=== PATIENT | female | born 1960 | race Caucasian/White ===

== ENCOUNTER → 2016-07-03 | Outpatient (CLI) | payer BC ==
[~2016-07-03] MED LIST: 00186-0370-20 IH; ATIVAN 0.50.5 MG/TAB PO; MICRO-K 1010 MEQ PO; MULTIPLE VITAMI1 CAP PO; NORCO 325 MG-7.1 TAB PO; PHENERGAN 25 TA25 MG PO; PULMICORT0.5 MG/2 M IH; RT SPIRIVA18 MCG IH; THEO-24 30300 MG/CAP PO; TRIAMCINOLONE0.11 TP; ULTRAM 50MG TAB50 MG PO; VENTOLIN0.09 MG IH
== END ==
LOC: COL.RAD 07-02 11:30
DX: M25.512 Pain in left shoulder (principal)
CPT/HCPCS: J3301; Q9967

== ENCOUNTER 2018-04-12 05:19 | Day surgery (SDC) | payer BC ==
[2018-04-12] VITALS (9 sets, daily range): BP systolic 106–137; BP diastolic 54–71; PULSE 63–81; TEMP 97–97.5
[~2018-04-12] VITALS: Ht 167.6 cm; Wt 65.2 kg
[2018-04-12] MEDS ORDERED: PROAIR HFA0.09 MG/AC IH (05:43)
[2018-04-12] MEDS ORDERED: DULERA1 AR1 IH (05:44)
[2018-04-12] MEDS ORDERED: SPIRIVA RE2.5 MCG/Ac IH (05:45)
[2018-04-12] MEDS ORDERED: MOBIC15 MG PO (05:47)
[2018-04-12] MEDS ORDERED: PHENERGAN 25 TA25 MG PO (05:47)
[2018-04-12] MEDS ORDERED: GLUCOPHAGE500 MG/TAB PO (05:48)
[2018-04-12] MEDS ORDERED: CALCIUM 600MG+D1 TAB PO (05:49)
[2018-04-12] MEDS ORDERED: NORCO 325 MG-51 TAB PO ×2 (05:49→09:09)
[2018-04-12] MEDS ORDERED: NATURAL POTASS595 MG PO (05:49)
[2018-04-12] MEDS ORDERED: PHARMASSURE ZIN50 MG PO (05:50)
[2018-04-12] MEDS ORDERED: B COMPLEX & B121 TAB PO (05:50)
[2018-04-12] MEDS ORDERED: HAIRSKINNAILS PO (05:50)
--- NOTE | 2018-04-12 06:21 | NUR ---
Patient resting comfortably in room, watching TV, spouse at the bedside. Her call light is in reach. She is offered comfort measure of an additional warm blanket, declines. Denies any needs at this time.
--- NOTE | 2018-04-12 06:55 | NUR ---
Patient rounding completed. Patient resting comfortably in room. HOB adjusted per patient's request. Denies any other needs at this time.
--- NOTE | 2018-04-12 07:38 | NUR ---
Patient rounding completed. Patient notified that Dr. Garcia will be delayed. Patient is pleasant and denies any needs at this time.
--- NOTE | 2018-04-12 07:48 | NUR ---
Patient requests and receives an additional warm blanket.
[2018-04-12] MEDS ORDERED: MOTRIN 600600 MG/TAB PO (09:09)
--- NOTE | 2018-04-12 09:40 | NUR ---
Patient arrives to [facility] at this time. She is drowsy, but easily awakens to voice. Her dressing in clean, dry, and intact. She denies any pain or nausea. Monitoring applied - VSS and WNL on 2L nasal cannula. Per patient, she wears 2L oxygen nasal cannula at home when she is sleeping. Patient's family is brought to the bedside. Offered and receives juice and applesauce to eat - tolerates well. Will continue to monitor.
--- NOTE | 2018-04-12 09:45 | NUR ---
VSS and WNL on 2L nasal cannula. Patient denies any pain, nausea, or need. She states "I'm ready to go home and sleep in my bed".
--- NOTE | 2018-04-12 10:00 | NUR ---
VSS and WNL on 2L nasal cannula. Oxygen titrated down to room air at this time to see if patient's SpO2 maintains for discharge.
--- NOTE | 2018-04-12 10:13 | NUR ---
Patient's SpO2 dipping down to 88%-90% on room air. Oxygen titrated back up to 2L nasal cannula at this time.
--- NOTE | 2018-04-12 10:15 | NUR ---
VSS and WNL on 2L nasal cannula. Patient is becoming more alert. She denies any pain, nausea, or need at this time.
--- NOTE | 2018-04-12 10:30 | NUR ---
VSS and WNL on 2 L nasal cannula.
--- NOTE | 2018-04-12 11:00 | NUR ---
Patient resting comfortably in room. Denies any pain, nausea, or need. Remains on 2L nasal cannula.
--- NOTE | 2018-04-12 11:07 | NUR ---
Patient requests to use restroom. Escorted to restroom with standby assist and steady gait noted. Patient voids and returns to room. Monitoring reapplied. SpO2 88-89% on room air. Patient placed back on 2 L nasal cannula and SpO2 rises to 92%.
--- NOTE | 2018-04-12 11:30 | NUR ---
Patient sitting up on side of bed. Coughing and deep breathing encouraged. Oxygen titrated down to room air. Will continue to monitor.
--- NOTE | 2018-04-12 12:04 | NUR ---
Patient maintaining SpO2 of 93% on room air. Discharge criteria has been met. PIV removed with catheter intact and hemostasis achieved. Discharge instructions discussed, denies any questions, and verbalizes understanding. Changing to clothing independently.
--- NOTE | 2018-04-12 12:12 | NUR ---
Discharge criteria has been met. Escorted to exit via wheelchair. Discharged to home with ride in private vehicle at 1212.
== END 2018-04-12 12:12 | disposition home or self-care (01) ==
LOC: SDCO 05:19
DX: N83.201 Unspecified ovarian cyst, right side (principal); J44.9 Chronic obstructive pulmonary disease, unspecified; E11.9 Type 2 diabetes mellitus without complications; J30.81 Allergic rhinitis due to animal (cat) (dog) hair and dander; M19.90 Unspecified osteoarthritis, unspecified site; M81.0 Age-related osteoporosis without current pathological fracture; F41.9 Anxiety disorder, unspecified; N95.1 Menopausal and female climacteric states; Z79.84 Long term (current) use of oral hypoglycemic drugs; Z88.1 Allergy status to other antibiotic agents; Z88.8 Allergy status to other drugs, medicaments and biological substances; Z90.710 Acquired absence of both cervix and uterus; Z87.891 Personal history of nicotine dependence; Z82.5 Family history of asthma and other chronic lower respiratory diseases; Z80.0 Family history of malignant neoplasm of digestive organs; Z83.3 Family history of diabetes mellitus; Z90.49 Acquired absence of other specified parts of digestive tract
CPT/HCPCS: J1100; J1885; J2405; J2704; J3010; J7120

== ENCOUNTER → 2020-06-04 | Outpatient (CLI) | payer OTHER ==
[~2020-06-04] MED LIST changes: +ACTOS 15MG TAB15 MG PO; +ASPIRIN 81M81 MG/TA2 PO; +B COMPLEX & B121 TAB PO; +BASAGLAR K100 UNIT/1 SQ; +BENTYL 10MG10 MG/CAP PO; +CALCIUM 600MG+D1 TAB PO; +CRANBERRY500 M3 PO; +DULERA1 AR1 IH; +GLUCOPHAGE500 MG/TAB PO; +HAIRSKINNAILS PO; +IPRATROPIUM BROM3 M1 IH; +MOBIC15 MG PO; +MOTRIN 600600 MG/TAB PO; +NATURAL POTASS595 MG PO; +NORCO 325 MG-51 TAB PO; +PHARMASSURE ZIN50 MG PO; +PRILOSEC 20MG20 MG PO; +PROAIR HFA0.09 MG/AC IH; +SPIRIVA RE2.5 MCG/Ac IH; +VITAMIN C500 MG PO
== END ==
LOC: MC.RAD 14:00
DX: C50.012 Malignant neoplasm of nipple and areola, left female breast (principal); Z96.89 Presence of other specified functional implants

== ENCOUNTER 2020-07-31 07:21 | Inpatient (IN) | payer OTHER ==
[~2020-07-31] VITALS: Ht 162.6 cm; Wt 69.1 kg
[2020-07-31] VITALS (9 sets, daily range): BP systolic 111–142; BP diastolic 61–86; PULSE 70–101; TEMP 97.6–98.1
[~2020-07-31 07:21] MED LIST changes: -ACTOS 15MG TAB15 MG PO; -ASPIRIN 81M81 MG/TA2 PO; -BASAGLAR K100 UNIT/1 SQ; -BENTYL 10MG10 MG/CAP PO; -CRANBERRY500 M3 PO; -IPRATROPIUM BROM3 M1 IH; -PRILOSEC 20MG20 MG PO; -VITAMIN C500 MG PO
[2020-07-31] MEDS ORDERED: ACTOS 15MG TAB15 MG PO (09:43)
[2020-07-31] MEDS ORDERED: BENTYL 10MG10 MG/CAP PO (09:45)
[2020-07-31] MEDS ORDERED: PRILOSEC 20MG20 MG PO (09:46)
[2020-07-31] MEDS ORDERED: ASPIRIN 81M81 MG/TA2 PO (09:47)
[2020-07-31] MEDS ORDERED: CRANBERRY500 M3 PO (09:48)
[2020-07-31] MEDS ORDERED: BASAGLAR K100 UNIT/1 SQ (09:49)
[2020-07-31] MEDS ORDERED: VENTOLIN0.09 MG IH (09:51)
[2020-07-31] MEDS ORDERED: IPRATROPIUM BROM3 M1 IH (09:56)
[2020-07-31] MEDS ORDERED: VITAMIN C500 MG PO (10:06)
--- NOTE | 2020-07-31 15:46 | NUR ---
Hospitalist notified of consult.
--- NOTE | 2020-07-31 17:18 | NUR ---
Patient alert and oriented, drowsy but awakens to verbal stimuli. See assessment. Left breast dressing CDI, CARMEN compressed, no drainage noted in bulb. Post op exercises education deferred until patient more coherent. No s/s pain or discomfort.
--- NOTE | 2020-07-31 20:00 | NUR ---
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 Assessment complete. A&Ox3-very drowsy. Denies pain/nausea/shortness of breath. VS remain stable. Dressing to left breast CDI. Scant amount of drainage in CARMEN drain. Refused HS meds. at bedside. Denies current needs. Call light in reach. Will monitor.
[2020-08-01] VITALS (7 sets, daily range): BP systolic 116–160; BP diastolic 54–75; PULSE 72–94; TEMP 97.7–98.4
[2020-08-01 03:48] LABS: COLLECTION METHOD CLEAN CATCH
[2020-08-01 03:57] LABS: MUCOUS Present /lpf; PH 6 (5-8); SQUAMOUS EPITHELIAL None Seen /hpf; URINE APPEARANCE Clear; URINE BACTERIA None Seen /hpf; URINE BILIRUBIN Negative (NEGATIVE); URINE BLOOD Negative (NEGATIVE); URINE COLOR Yellow; URINE GLUCOSE 3+ (NEGATIVE); URINE KETONE Trace (NEGATIVE); URINE LEUKOCYTE ESTERASE Negative (NEGATIVE); URINE NITRATE Positive (NEGATIVE); URINE PROTEIN(semi-quant) Negative (NEGATIVE); URINE RBC 0-2 /hpf; URINE UROBILINOGEN Negative (NEGATIVE)
--- NOTE | 2020-08-01 06:31 | NUR ---
Slept entire shift. Denies pain/nausea/short of breath. VS remain stable. Voiding without difficulty. Tolerating diet-has been INTd. CARMEN drain with 30mls bloody fluid. Denies current needs. Call light in reach. WIll monitor.
--- NOTE | 2020-08-01 06:40 | NUR ---
Pt awake, denies needs at this time
[2020-08-01 07:24] LABS: EOS % 0.2 % (0-4.0); GRAN # 4.1 (1.4-6.5); GRAN % 76.3 % (42.2-75.2); HEMOGLOBIN 11.9 g/dl (12.5-16.0); LYMPH # 0.9 (1.2-3.4); LYMPH % 15.9 % (20.0-51.0); MEAN CELL VOLUME 101 fl (80.0-100.0); MEAN CORPUSCULAR HEMOGLOBIN 33 pg (27.0-31.0); MEAN CORPUSCULAR HGB CONC 33 g/dl (33.0-37.0); MEAN PLATELET VOLUME 13.5 fl (7.4-10.4); MONO # 0.4 (0.1-0.6); MONO % 7.4 % (1.7-9.3); PLATELET COUNT 71 K/mm3 (130-400); RED BLOOD COUNT 3.61 M/mm3 (4.10-5.30); REDCELL DISTRIBUTION WIDTH-CV 13.2 % (11.5-14.5)
[2020-08-01 07:29] LABS: HEMATOCRIT 36.6 % (37.0-47.0)
[2020-08-01 07:36] LABS: INR 1.3 (0.8-3.0)
[2020-08-01 07:45] LABS: ALBUMIN 3.3 gm/dL (3.5-5.0); BILIRUBIN,TOTAL 0.6 mg/dL (0.0-1.0); CALCIUM 9.5 mg/dL (8.4-10.2); CREATININE, serum 0.48 (0.52-1.25); POTASSIUM 4.1 mmol/L (3.4-5.0); TOTAL PROTEIN 6.5 gm/dL (6.4-8.2)
--- NOTE | 2020-08-01 09:13 | NUR ---
Pt doing well this morning. She has had and tolerated breakfast with no complaints. No pain at this time, no needs verbalized, will continue to monitor
--- NOTE | 2020-08-01 10:30 | NUR ---
Met with pt and her at bedside for general information review regarding mastectomy care. Pt has already spoken with physician and really denies having questions. She has a [id number] who is the primary person she identifies that she can go to with questions as she also has had a mastectomy. Provided with general information regarding masectomy supplies and given [facility] supply catalog and my contact information. She was also provided with pillow from cancer support group to help elevate her arm when resting and a shoulder bag for her drain when she leaves the hospital. Support provided.
--- NOTE | 2020-08-01 11:05 | NUR ---
Pt continues to do well with no needs or complaints verbalized
--- NOTE | 2020-08-01 14:57 | NUR ---
Pt continues to do well with no complaints
--- NOTE | 2020-08-01 15:06 | NUR ---
Initial visit; Patient thanked [employer] for looking in on her and offering God's blessings. Patient was receptive to [employer] keeping her in her prayers.
--- NOTE | 2020-08-01 18:17 | NUR ---
Pt did well throughout the day. No pain complaints and dressing has stayed CDI. Educated pt on how to drain the CARMEN drain. Tolerated general diet.
--- NOTE | 2020-08-01 19:00 | NUR ---
Report received. Abdiel yuen in chair visiting with .
--- NOTE | 2020-08-01 20:00 | NUR ---
Assessment complete. A&Ox3. VS have been stable. Dressing to left breast CDI. CARMEN drain with scant amount of serosanguineous fluid. SCDs bilat. Plan of care discussed for this shift to inlcude HS meds/glucose monitoring/pain control. Verbalizes understanding/denies questions/concerns. Call light in reach. Will monitor.
--- NOTE | 2020-08-01 20:55 | NUR ---
Called with c/o pain to left breast area-rating pain 6/10 on pain scale- described as burning/throbbing. [place] given per dr good.
--- NOTE | 2020-08-02 00:15 | NUR ---
Resting eyes closed. NO s/s of pain or discomfort noted.
[2020-08-02 04:21] VITALS: BP 125/73; PULSE 77; TEMP 97.9
--- NOTE | 2020-08-02 04:22 | NUR ---
VS stable. Denies pain/nausea/shortness of breath. Dressing to left breast CDI. CARMEN with 25mls bloody drainage for this shift. Refused SCDs at bedtime stating she wanted a break from them. Tolerating diet. Has been up out of bed. Denies questions/concerns. Call light in reach. Will monitor.
[2020-08-02 06:37] LABS: BASO % 0.3 % (0.0-2.0); EOS # 0.1 (0.0-0.7); GRAN # 3.2 (1.4-6.5); GRAN % 54.7 % (42.2-75.2); HEMOGLOBIN 11.3 g/dl (12.5-16.0); LYMPH # 2.2 (1.2-3.4); LYMPH % 37.4 % (20.0-51.0); MEAN CELL VOLUME 100 fl (80.0-100.0); MEAN CORPUSCULAR HEMOGLOBIN 33 pg (27.0-31.0); MEAN CORPUSCULAR HGB CONC 33 g/dl (33.0-37.0); MONO # 0.4 (0.1-0.6); MONO % 6.4 % (1.7-9.3); PLATELET COUNT 70 K/mm3 (130-400); RED BLOOD COUNT 3.43 M/mm3 (4.10-5.30); REDCELL DISTRIBUTION WIDTH-CV 13.4 % (11.5-14.5)
[2020-08-02 06:40] LABS: HEMATOCRIT 34.4 % (37.0-47.0)
[2020-08-02 06:52] LABS: CALCIUM 9.1 mg/dL (8.4-10.2); CREATININE, serum 0.52 (0.52-1.25); POTASSIUM 3.7 mmol/L (3.4-5.0)
[2020-08-02 07:49] VITALS: BP 135/72; PULSE 72; TEMP 97.8
--- NOTE | 2020-08-02 09:21 | NUR ---
Flight Paramedic met with the patient and her , Richard to complete intake. The patient lives in [place] with Richard. The patient denies DME use and is independent with ADLs. The patient's PCP is Dr. Cervantes and patient receives medications from [facility] in [place]. The patient does not have advanced directives and was not interested in DPOA-HC form at this time. The discharge plan is to return home with Richard. *Discharge disposition: Home with spouse, Richard
--- NOTE | 2020-08-02 09:36 | NUR ---
Pt has done well this morning, ate all her breakfast with no complaints. Pain is minimal at this time at the incision site. Airstrip applied. Reviewed discharge instructions to include drain care. Gave her a sheet to document the drain output. INT removed from right wrist. Pt escorted out
== END 2020-08-02 09:40 | disposition home or self-care (01) | DRG 580 ==
LOC: SDCO 07:21 → SURG 07:21 → SDCO 12:00 → SURG 15:46 → SDCO 15:47 → SURG 15:47
PROVIDERS: Hospitalist; Physician Assistant; ADMIT Surgery
PROC: 07B60ZX Excision of Left Axillary Lymphatic, Open Approach, Diagnostic (ICD-10-PCS; principal; 2020-07-31 12:00)
PROC: 0HBU0ZZ Excision of Left Breast, Open Approach (ICD-10-PCS; 2020-07-31 12:00)
DX: C50.812 Malignant neoplasm of overlapping sites of left female breast (principal); K76.6 Portal hypertension; E11.9 Type 2 diabetes mellitus without complications; D69.6 Thrombocytopenia, unspecified; D69.59 Other secondary thrombocytopenia; J44.9 Chronic obstructive pulmonary disease, unspecified; K74.60 Unspecified cirrhosis of liver; K21.9 Gastro-esophageal reflux disease without esophagitis; M19.90 Unspecified osteoarthritis, unspecified site; M81.0 Age-related osteoporosis without current pathological fracture; R16.1 Splenomegaly, not elsewhere classified; R50.9 Fever, unspecified; F17.210 Nicotine dependence, cigarettes, uncomplicated; Z79.4 Long term (current) use of insulin; Z79.82 Long term (current) use of aspirin; Z79.891 Long term (current) use of opiate analgesic; Z17.0 Estrogen receptor positive status [ER+]; Z85.41 Personal history of malignant neoplasm of cervix uteri; Z90.710 Acquired absence of both cervix and uterus; Z90.49 Acquired absence of other specified parts of digestive tract; Z88.2 Allergy status to sulfonamides; Z88.1 Allergy status to other antibiotic agents
CPT/HCPCS: OP; 99223; A9541; J1100; J1815; J2250; J2704; J2795; J3010; J7120; Q9968